=== PATIENT | female | born 1965 | race Caucasian/White ===

== ENCOUNTER 2024-02-14 10:07 | Outpatient (CLI) | payer OTHER, SELFPAY ==
--- OUTSIDE RECORDS SUMMARY | 2024-02-14 10:11 | XMS_ITS | Clinical Summary ---
Author Organization [facility] Address [address] [place] [address] Care Team Providers Care Environmental Engineering Manager Name Role Phone Kenyatta Muniz M.D. Primary Care Pro vider Source Comments Patient records contain information from all sites at [facility]. For routine questions regarding patient records, call [phone] during business hours, M-F 8:00 AM - 5:00 PM Central Time. Record requests for emergency care only can be directed to [phone] at any time.[facility] Allergies Active Allergy Reactions Criticality Noted Date Comments Erythromycin GI intolerance 04/30/2005 PN: LW Reaction: nausea Penicillins Rash Low 06/30/2016 Sulfa (Sulfonamide Antibiotics) Rash Low 06/30/2016 Medications Medication Sig Dispensed Refills Start Date End Date Status olopatadine (PATADAY) 0.2 % ophthalmic solution Administer 1 drop into both eyes daily. 06/30/2016 Active acetaminophen (TYLENOL) 500 mg tablet Take 1,000 mg by mouth. Active estradioL (VAGIFEM) 10 mcg vaginal tablet Insert 1 tablet (10 mcg) into vagina at bedtime for two weeks then at bedtime twice a week. 18 tablet 3 01/13/2022 Active amLODIPine (NORVASC) 5 mg tablet TAKE ONE TABLET BY MOUTH ONE TIME DAILY 90 tablet 3 04/18/2023 Active sertraline (ZOLOFT) 100 mg tablet take one tablet by mouth one time daily 90 tablet 3 08/30/2023 Active clonazePAM (KlonoPIN) 0.5 mg tablet Take 1 tablet (0.5 mg total) by mouth 2 (two) times a day as needed for anxiety. 30 tablet 09/13/2023 Active triamcinolone (KENALOG) 0.1 % cream Apply topically 2 (two) times a day as needed for irritation or rash. Avoid face and groin. 30 g 3 10/19/2023 Active Active Problems Problem Noted Date Diagnosed Date Hypertension Essential Primary 01/12/2022 Pain Neck 11/17/2021 Screening Cancer Colon 01/08/2021 Overview: Added automatically from request for surgery [id number] Primary Osteoarthritis Lumbar Spine 06/30/2016 Panic Disorder Episodic Paroxysmal Anxiety 06/30 Cancer Colon Family History 06/30/2016 Encounters Date Type Department Care Team Description 02/07/2024 12:51 PM CDT - 02/07/2024 11:59 PM CDT Hospital Encounter Department of Radiology in [address] [phone] Kenyatta Muniz M.D. Bleeding Vaginal Discharge Disposition: Home or Self Care 02/02/2024 4:30 PM CDT Office Visit Department of Family Medicine, [facility], in [address] [phone] Julia Montesinos APRN, C.N.P., D.N.P. Lesion Skin Foot (Primary Dx) 02/02/2024 Nurse Triage Department of Family Medicine, [facility], in [address] [phone] Emelina Hammond R.N. 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 Last 3 Months Immunizations Name Administration Dates Next Due H1N1 All Forms 08/11/2009,05/22/2009 HepA Adult 05/26/2023,07/12/2002 HepB Adult 11/29/2003,08/09/2002,07/12/2002 Influenza (IM) Preservative Free 05/09/2023,09/0 04/2010,06/17/2009 Influenza TIV (IM) 04/30/2010,07/11/2002 Influenza, Injectable, Mdck, Quadrivalent 05/02/2023,05/03/2022 Influenza, Injectable, Quadrivalent 06/19/2020,0 05/13/2015 Influenza, Seasonal, Injectable 11/06/19 16,06/28/2014,05/29/2013,2012,06/15/2011,07/11/2002 Influenza, Unspecified 06/05/2020,11/06/2015 PCV20 01/12/2022 RZV (SHINGRIX) 01/08/2021,07/26/2019 SARS-COV-2 (COVID-19) - MODERNA(Discontinued) 12/18/2020,11/20/2020 Td (Adult), adsorbed 07/12/2002 Td Preservative Free (TENIVA C, DECAVAC) 04/27/2018 Tdap 02/15/2007 influenza high dose (65 year s or older) (PF) 05/22/2009 influenza vaccine QV(FLUBLOK ) (18 years or older) (PF) 06/26/2021 influenza vaccine quad (FLUZONE/FLUARIX) (6 months and older)(PF) 07/26/2019,05/25/2018,09/06/2017 Family History Medical History Relation Name Comments Lung cancer Aunt maternal Tobacco Use Aunt maternal Diabetes Brother 1 Pramod Hypertension Brother 1 Pramod Rectal cancer Brother 2 Wilner Hypertension Brother 3 Lance Coronary artery disease Father Hypertension Father Breast cancer Father's Sister Coronary artery disease Grandfather paternal Hypertension Grandfather paternal Gastric cancer Grandmother maternal Colonic polyp Mother Kidney disease Mother stage 5 Hypertension Sister 1 Penny Kidney disease Sister 1 Penny Colon polyps Sister 2 Alysa Colon cancer Uncle maternal Relation Name Status Comments Aunt maternal Brother 1 Pramod Brother 2 Wilner Alive Brother 3 Lance Alive Father Father's Sister Grandfather paternal Grandmother maternal Mother Sister 1 Penny Sister 2 Alysa Alive Uncle maternal Social History Tobacco Use Types Packs/Day Years Used Date Smoking Tobacco: Former Cigars Smokeless Tobacco: Never Tobacco Cessation:Counseling Given: Not Answered Alcohol Use Standard Drinks/Week Comments Yes 14 (1 standard drink = 0.6 oz pu re alcohol) Humiliation, Afraid, Rape, and Kick questionnair e Answer Date Recorded Within the last year, have y ou been afraid of your partner or ex-partner? No 01/05/2021 Within the last year, have y ou been humiliated or emotionally abused in other ways by your partner or ex-partner? No Within the last year, have y ou been kicked, hit, slapped, or otherwise physically hurt by your partner or ex-partner? No 01/05/2021 Within the last year, have y ou been raped or forced to have any kind of sexual activity by your partner or ex-partner? No 01/05/2021 Social Connection and Isolation Panel [NHANES] A nswer Date Recorded In a typical week, how many times do you talk on the phone with family, friends, or neighbors? Twice a week 01/05/2021 How often do you get together with friends or re latives? Once a week 01/05/2021 Attends Holiness Services Not on file 01/05 Active Member of Clubs or Organizations Not on f ile 01/05/2021 Attends Club or Organization Meetings Not on susi e 01/05/2021 Are you , , di vorced, , never , or living with a partner? 01/05/2021 AUDIT-C Answer Date Recorded Q1: How often do you have a drink containing alcohol? 4 or more times a week 01/05/2021 Q2: How many drinks containi ng alcohol do you have on a typical day when you are drinking? 3 or 4 Q3: How often do you have si x or more drinks on one occasion? Monthly 01/05/2021 Overall Financial Resource Strain (CARDIA) Answe r Date Recorded How hard is it for you to pa y for the very basics like food, housing, medical care, and heating? Not hard at all 01/05/2021 PHQ-2 Answer Date Recorded PHQ-2 Score 0 02/02/2024 [facility] [place] [facility] Occupat ional Health - Occupational Stress Questionnaire Answer Date Recorded Do you feel stress - tense, restless, nervous, or anxious, or unable to sleep at night because your mind is troubled all the time - these days? Only a little 01/05/2021 Exercise Vital Sign Answer Date Recorde d On average, how many days pe r week do you engage in moderate to strenuous exercise (like a brisk walk)? 3 days 01/05/2021 On average, how many minutes do you engage in exercise at this level? 60 min 01/05/2021 Hunger Vital Sign Answer Date Recorded Within the past 12 months, y ou worried that your food would run out before you got the money to buy more. Never true 01/06/20 21 Within the past 12 months, t he food you bought just didn't last and you didn't have money to get more. Never true 01/05/2021 PRAPARE - Transportation Answer Date Re corded In the past 12 months, has l ack of transportation kept you from medical appointments or from getting medications? No 12/20 In the past 12 months, has l ack of transportation kept you from meetings, work, or from getting things needed for daily living? No 01/05/2021 Housing Stability Vital Sign Answer Danie e Recorded In the last 12 months, was t here a time when you were not able to pay the mortgage or rent on time? No 01/05/2021 In the last 12 months, how many places have you lived? 1 01/05/2021 In the last 12 months, was t here a time when you did not have a steady place to sleep or slept in a chcf (including now)? No 01/05/2021 Nutrition Answer Date Recorded Nutrition: EVOO Fat Source No 01/05 On average, how many serving s of fruits and vegetables do you eat per day (serving size is equal to 1 cup or approximately the size of a tennis ball)? 2-3 01/05/2021 Dental Answer Date Recorded Dental: Regular Dentist Unknown 01/25/20 Employment Answer Date Recorded Employment status Employed and actively working without restrictions 01/05/2021 Education Answer Date Recorded What is the highest level of school you have completed or the highest degree you have received? Master's degree (e.g., MA, MS, Chris, MEd, OR SCRUB TECH, CYRUS) 07/24/2019 Sex and Gender Information Value Date Recorded Sex Assigned at Female 10/12/2021 9:16 AM BATTALION FIRE CHIEF Gender Identity Female 07/24/2019 5:47 PM BATTALION FIRE CHIEF Sexual Orientation Lesbian or Yates 07/24/2019 5: 47 PM BATTALION FIRE CHIEF Last Filed Vital Signs Vital Sign Reading Time Taken Comments Blood Pressure 137/87 02/02/2024 4:02 PM CDT Pulse 67 02/02/2024 4:02 PM CDT Temperature 35.7 ??C (96.3 ??F) 02/02/2024 4:02 PM CD T Respiratory Rate 16 02/02/2024 4:02 PM CDT Oxygen Saturation 98% 05/26/2023 6:04 PM CDT Inhaled Oxygen Concentration - - Weight 81.4 kg (179 lb 5.5 oz) 02/02/2024 4:02 P M CDT Height 177.6 cm (5' 9.92) 02/02/2024 4:02 PM CD T Body Mass Index 25.79 02/02/2024 4:02 PM CDT Plan of Treatment Upcoming Encounters Date Type Department Care Team (Late st Contact Info) Description 02/17/2024 2:15 PM CDT Comprehensive Visit Department of Obstetrics and Gynecology in [address] [phone] Tracee Thompson M.D. [address] [place] [phone] Discharge Disposition: Home or Self Care 05/29/2024 8:30 AM CDT Appointment Department of Laboratory Medicine in [address] [phone] Kenyatta Muniz M.D. [address] [place] [phone] 05/29/2024 10:45 AM CDT Comprehensive Visit Department of Family Medicine, [facility], in [address] [phone] Kenyatta Muniz M.D. [address] [place] [phone] Discharge Disposition: Home or Self Care Health Maintenance Due Date Last Done Comments CT Colonography 1965 Cologuard 1965 Mammogram 05/19/2024 05/19/2023, 12/21, 11/17/2020, Additional history exists Visit: Chronic Disease, age 18+ 05/26/2024 05/26/2023 Office Visit for Blood Pressure Check / Re-check 02/01/2025 02/02/2024 Colonoscopy 02/27/2026 02/27/2021, 07/22/2016 Colorectal Cancer Surveillance 02/27/2026 Fasting Glucose for Diabetes Screening 05/19/2026 05/19/2023, 01/11/2022, 02/07/2017 Cervical Cancer Screening 01/12/20272021, 01/12/2022, 11/12/2015 DTaP,Tdap,and Td Vaccines (3 - Td or Tdap) 04/27/2028 04/27/2018, 02/15/2007, 07/12/2002 Lipid (Cholesterol) Screening 05/19/2028 05/19/2023, 01/11/2022, 04/27/2018, Additional history exists HIV Screening Addressed 08/22/1998 (Perf ormed elsewhere) Overridden with the intention of not completing the topic Hepatitis B Vaccines Completed 11/29/2003, 08/09/2002, 07/12/2002 Hepatitis C Screening Completed 04/27/2018 Zoster Vaccines Completed 01/08/2021, 07/26/2019 Pneumococcal vaccine (0-64 years) Aged Out 01/12/2022 No longer eligible b ased on patient's age to complete this topic Influenza Vaccine Completed 05/09/2023, , 05/03/2022, Additional history exists Hepatitis A Vaccines Completed 05/26/2023, 07/12/20 02 COVID-19 Vaccine Completed 07/07/2023, 05/2022, 01/01/2022, Additional history exists Depression Screening (Annual PHQ-2) Completed 02/02/2024, 02/02/2024 Procedures Procedure Name Priority Date/Time Associated Diagnosis Comments US PELVIS TRANSABDOMINAL RAD - Routine (most inpatients and all outpatients) 02/07/2024 1:18 PM CDT Bleeding Vaginal BI BREAST SCREENING BILATERAL WITH TOMOSYNTHESIS RAD - Routine (most inpatients and all outpatients) 05/19/2023 9:09 AM CDT Screening Mammogram Breast Cancer GLUCOSE, FASTING, S/P Routine 05/19/2023 8:54 AM CDT Screening Examination Diabetes Mellitus LIPID PANEL, S Routine 05/19/2023 8:54 AM CDT Screening Lipid HPV WITH GENOTYPING, PCR, THINPREP Routine 01/12/2022 5:46 PM CDT COLONOSCOPY 02/27/2021 12:27 PM CDT HCV AB SCRN W/REFLEX TO HCV PCR, S Routine 04/27/2018 10:28 AM CDT Screening Test Laboratory from Last 3 Months or Most Recently Relevant to Health Maintenance Results * US Pelvis Transabdominal (02/07/2024 1:18 PM CDT) Anatomical Region Laterality Modality Pelvis, Ultrasound RST LOS, Ultrasound ARZ LOS, Ultrasound FLA LOS N/A Ultrasound Impressions 02/07/2024 2:08 PM CDT 1. Endometrial thickening measuring 6 mm. Recommend correlation with tissue sampling. Narrative 02/07/2024 2:08 PM CDT EXAM: US PELVIS TRANSABDOMINAL COMPARISON: None TECHNIQUE: ??Transabdominal. FINDINGS: Uterus: 1.9 cm x 4.3 cm x 5.8 cm. Myometrium: Normal. Endometrium: Thickened. 6 mm Right ovary: Normal. Left ovary: Normal. Intraperitoneal Fluid: None. Procedure Note Quincy Herman M.D. - 02/07/2024 EXAM: US PELVIS TRANSABDOMINAL COMPARISON: None TECHNIQUE: Transabdominal. FINDINGS: Uterus: 1.9 cm x 4.3 cm x 5.8 cm. Myometrium: Normal. Endometrium: Thickened. 6 mm Right ovary: Normal. Left ovary: Normal. Intraperitoneal Fluid: None. IMPRESSION: 1. Endometrial thickening measuring 6 mm. Recommend correlation withtissue sampling. Kenyatta KULKARNIG US CT OCEDURES * BI Breast Screening Bilateral with Tomosynthesis (05/19/2023 9:09 AM CDT) Anatomical Region Laterality Modality Breast, Breast Imaging RST L OS, Breast Imaging ARZ LOS, Breast Imaging FLA LOS Bilateral Mammography 05/19/2023 11:4 6 AM CDT Impressions 05/19/2023 11:47 AM CDT Negative. RECOMMENDATION: ??Annual Screening Mammogram ASSESSMENT: ??BI-RADS: 1: Negative. Narrative 05/19/2023 11:47 AM CDT EXAM: ??BI BREAST SCREENING BILATERAL WITH TOMOSYNTHESIS Current study was evaluated with a Computer Aided Detection (CAD) system. INDICATION: ??Screening mammogram. COMPARISON: ??Prior exam(s) were available and reviewed for comparison. DENSITY: ??b. There are scattered areas of fibroglandular density. FINDINGS: ??No mammographic findings of malignancy. Procedure Note Gigi Britt M.D. - 05/19/2023 EXAM: BI BREAST SCREENING BILATERAL WITH TOMOSYNTHESIS Current study was evaluated with a Computer Aided Detection (CAD) system. INDICATION: Screening mammogram. COMPARISON: Prior exam(s) were available and reviewed for comparison. DENSITY: b. There are scattered areas of fibroglandular density. FINDINGS: No mammographic findings of malignancy. IMPRESSION: Negative. RECOMMENDATION: Annual Screening Mammogram ASSESSMENT: BI-RADS: 1: Negative. Kenyatta GARCIA BI CT OCEDURES * (ABNORMAL) Lipid Panel (05/19/2023 8:54 AM CDT) Pathologist [facility] Triglycerides 77 mg/dL 05/19/2023 9:20 AM CDT CNFL Comment: ----REFERENCE VALUE---- Normal: <150 mg/dL Borderline High: 150-199 mg/dL High: 200-499 mg/dL Very High: > or =500 mg/dL Cholesterol, Total 207(H) mg/dL 2022 9:20 AM CDT CNFL Comment: ----REFERENCE VALUE---- Desirable: < 200 mg/dL Borderline High: 200 - 239 mg/dL High: > or = 240 mg/dL Cholesterol, LDL, Calculated 100 mg/dL 05/19/2023 9:20 AM CDT CNFL Comment: ----REFERENCE VALUE---- Desirable: <100 mg/dL Above Desirable: 100-129 mg/dL Borderline High: 130-159 mg/dL High: 160-189 mg/dL Very High: >=190 mg/dL ----ADDITIONAL INFORMATION---- LDL cholesterol calculated using the Lynne/NIH equation. Cholesterol, HDL 93 >=50 mg/dL 05/19/20 9:20 AM CDT CNFL Cholesterol, Non-HDL, Calculated 114 mg/dL 05/19/2023 9:20 AM CDT CNFL Comment: ----REFERENCE VALUE---- Desirable: <130 mg/dL Above Desirable: 130-159 mg/dL Borderline High: 160-189 mg/dL High: 190-219 mg/dL Very High: > or =220 mg/dL Fasting (8 HR or more) Yes 05/19/2023 8:54 AM CDT CNFL Blood (Blood, Venous) 05/19/2023 8:54 AM CDT 05/19/2023 8:54 AM CDT Kenyatta Benavides M.D. LAB BLOOD ADD-ON Performing Organization Address City/State/[facility] Co de Phone Number [facility] [address] [place] [address], [facility] CNFL [facility] in [address] [address] * Glucose, Fasting (05/19/2023 8:54 AM CDT) Glucose, P 98 70 - 100 mg/dL 05/19/2023 11:00 AM CDT CNFL Last Intake 11 hr 05/19/2023 8:55 AM CDT CNFL Blood (Blood, Venous) 05/19/2023 8:54 AM CDT 05/19/2023 8:54 AM CDT Kenyatta Benavides M.D. LAB BLOOD NON ADD-ON Performing Organization Address City/[facility]/ZIP Co de Phone Number [facility] [address] [place] [id number], [facility] CNFL [facility] in [address] [address] * HPV with Genotyping, PCR, ThinPrep (01/12/2022 5:46 PM CDT) HPV with Genotyping, ThinPrep, PCR Negative Negative 01/15/2022 3:29 PM CDT ECLR Comment: Negative for high risk HPV by nucleic acid amplification. ??The following high risk HPV types were not detected: 16, 18, 31, 33, 35, 39, 45, 51, 52, 56, 58, 59, 66, and 68 Varies 01/12/2022 5:46 PM CDT 01/14/2022 2:54 PM CDT Kenyatta Benavides M.D. LAB MICRO BIOLOGY - GENERAL ORDERABLES Performing Organization Address City/[facility]/ZIP Co de Phone Number [facility] [address] [place] [address], [facility] ECLR [facility] [place] [address] * COLONOSCOPY (02/27/2021 12:27 PM CDT) Narrative Procedure Note Pal Lee M.D. - 02/27/2021 12:27 PM CDT [facility] GI Patient Name: Nataliia Grant Procedure Date: 02/27/2021 12:27 PM Date of : 1965 Age: 55 Gender: Female Procedure: Colonoscopy Providers: Kenyatta Drake (Ordering Provider) Referring Provider: Kenyatta Wilburn Pre-op Diagnoses: High risk colon cancer surveillance: Personal history of colonic polyps, Family history ofcolon cancer in a first-degree relative before age 60years Post-op Diagnoses: - Two 2 to 3 mm polyps in the transverse colon, removed with a cold snare. Resected and retrieved. - Diverticulosis in the sigmoid colon. Recommendation: - Discharge patient to home. - Await pathology results. - Repeat colonoscopy in 5 years for surveillance. - Return to primary care physician PRN. Findings: The perianal and digital rectal examinations were normal. Two sessile polyps were found in the transverse colon. The polypswere 2 to 3 mm in size. These polyps were removed with a cold snare.Resection and retrieval were complete. Estimated blood loss was minimal. A few small-mouthed diverticula were found in the sigmoid colon. No additional abnormalities were found on retroflexion. Medicines: Propofol per Anesthesia Estimated Blood Loss: Estimated blood loss was minimal. Complications: No immediate complications. Estimated blood loss: Minimal. Procedure Details: The patient was seen, evaluated, and history reviewed. Airway and heart and lung exams were performed and were satisfactory for plannedsedation care. The risks, benefits and alternatives for the procedure and sedation were discussed andinformed consent was obtained. A procedural pause was conducted in the presence of assisting personnelto verify the correct patient identity and procedureto be performed. Throughout the procedure, the patient's blood pressure, pulse, and oxygen saturations were monitored continuously. The 98 [id number] was introduced underdirect vision through the anus and advanced to thececum, identified by appendiceal orifice and ileocecal valve. The colonoscopy was performed without difficulty. The patient tolerated the procedure well. The quality of the bowel preparation was evaluated using the BBPS ([place] BowelPreparation Scale) with scores of: Right Colon = 3,Transverse Colon = 3 and Left Colon = 3 (entire mucosa seen well with no residual staining, small fragmentsof stool or opaque liquid). The total BBPS scoreequals 9. Sedation: Anesthesia was administered by an anesthesia professional. Thefollowing parameters were monitored: oxygen saturation, heart rate, blood pressure, respiratory rate, EKG, adequacy of pulmonary ventilation,and response to care. Pal Lee, 02/27/2021 12:59:33 PM This report has been signed electronically. Number of Addenda: 0 Note Initiated On: 02/27/2021 12:27 PM Kenyatta Benavides M.D. GI PROCED URE ORDERABLES * HCV Ab Scrn w/Reflex to HCV PCR, Serum (04/27/2018 10:28 AM CDT) HCV Ab Screen, S Nonreactive Nonreactive 04/28/2018 8:08 AM CDT [facility] Blood (Blood, Venous) 04/27/2018 10:28 AM CDT 04/27/2018 3:39 PM CDT Narrative [facility] - 04/28/2018 8:08 AM CDT Specimen Information: Specimen ID: [id number] Specimen Type: Blood Specimen Collection Start Date: 04/27/2018 10:28 AM Specimen Received Date: 04/27/2018 ??3:39 PM Specimen ID: [id number] Specimen Type: Blood Specimen Collection Start Date: 04/27/2018 10:28 AM Specimen Received Date: 04/27/2018 ??3:39 PM Kenyatta Benavides M.D. LAB MICRO BIOLOGY - BLOOD ORDERABLES [facility] [address] [place] [address] from Last 3 Months or Most Recently Relevant to Health Maintenance Insurance Payer Benefit Plan / Group Subscriber ID Effective Dates Phone Address Type [employer] [id number] 08/01-P resent [address] [place] [address] [facility] OPEN ACCESS [id number] 2022-Pre sent [address] [place] [address] PPO Advance Directives For more information, please contact: [phone] * Full Code (Latest Code Status on File) Date Activated Date Inactivated Comments 02/27/2021 1:05 PM 02/27/2021 3:48 PM Question Answer Comments Full Code: Discussed * Full Code Date Activated Date Inactivated Comments 02/27/2021 11:34 AM 02/27/2021 1:05 PM Question Answer Comments Full Code: Discussed Care Teams Environmental Engineering Manager Relationship Specialty Start Date End Date Kenyatta Muniz M.D. [id number] [phone] PCP - General 02/03/17
--- OUTSIDE RECORDS SUMMARY | 2024-02-14 10:12 | XMS_ITS ---
Author Organization [facility] Address [address] [place] [address] Care Team Providers Care Diesel Instructor Name Role Phone Unavailable Unavailable Unavailable Surgery Details Not on file Complications Check Surgery Details section. Procedure Estimated Blood Loss Check Surgery Details section. Procedure Findings Check Surgery Details section. Procedure Specimens Taken Check Surgery Details section.
--- OUTSIDE RECORDS SUMMARY | 2024-02-14 10:12 | XMS_ITS | Continuity of Care Document ---
Author Organization [place] - [facility], [place] Office Address [address] [place] [phone] Assessment No assessment recorded. Plan of Treatment Reminders Order Date Submit Date Provider Last Modified By Organization Details Last Modified Time Details Appointments None recorded. Lab None recorded. Referral None recorded. Procedures None recorded. Surgeries None recorded. Imaging MRI, foot, w/wo contrast - Please fax results back to Dr. Rosales at 2023 024 [facility] Radiology Department, [address] [place], [address], 04:23:36 XR, foot, 3 or more view 2023 024 [facility] Office, [address] [place] [address], [phone], 15:17:42 Medication Orders None recorded. Patient TargetsNo targets recorded. Patient InstructionsNo instructions recorded. Reason for Referral None Reported. Results Created Date Observation Date Name Description Value Unit Range Abnormal Flag LastModifiedBy Organization Detail LastModifiedTime 02/03/20 24 XR, foot, 3 or more view No observ ation record ed. [email or web address] [place] [address], [phone], 02/03/2024 12:17:31 Result Notes None recorded. Procedures Surgical History None recorded. Imaging Results Imaging Date Name Status LastModified by Organiz ation Details LastModified Time 02/03/2024 XR, foot, 3 or more view active [address] [place] [address], [phone], 02/03/2024 12:17:31 Procedure Notes None recorded. Medical Equipment None Reported. Allergies Allergen ID Allergen Name Allergen Category Reaction Reaction Severity Criticality Documentation Date Start Date Code Code System Note Provider Name and Address Organization Details Recorded Time Medicinal product containin g penicilli n and acting as antibacte rial agent (product) medicatio n Not available Not available Not available 02/03/2024 [id number] [facility] Julia Lenz [facility] 11:19:33 Medications Name Sig Start Date Stop Date Status Note LastModified by Organization Details LastModified Time clonazepam 0.5 mg tablet TAKE ONE TABLET BY MOUTH TWICE DAILY NEEDED FOR ANXIETY* active Not Available Not Available No t Available sertraline 100 mg tablet TAKE ONE TABLET BY MOUTH ONE TIME DAILY* active Not Available Not Available Not Available amlodipine 5 mg tablet TAKE ONE TABLET BY MOUTH ONE TIME DAILY* active Not Available Not Available Not Available triamcinolon e acetonide 0.1 % topical cream APPLY TOPICALLY TWICE A DAY NEEDED FOR IRRITATION OR RASH. AVOID FACE AND GROIN* active Not Available Not Available N ot Available Vitals Date Recorded Body height Body mass index (BMI) Body weight Provider Name and Address Organization Details Last Updated DateTime 02/03/2024 180.34 cm 23.4 kg/m2 30744.52 booker Lenz [facility] 02/03/2024 11:19:18 Social History None recorded. Functional Status None recorded. Mental Status None recorded. Family History Nothing Reported. Medical History No medical history recorded. Gynecological HistoryNo gynecological history recorded. Obstetrics History GPAL:G 0 P 0 0 0 0 Past Encounters Encounter ID Performer Location Encounter Start Date Encounter Closed Date Diagnosis/Indication Diagnosis SNOMED-CT Code [id number] AZRA ROSALES D[facility] [place] [facility] [address] [place] [phone] 02/03/2024 11:18:48 02/03/2024 15:17:42 Mass of soft tissue of right lower limb [id number] 105 Pain in right foot [id number] Health Concerns Section Related Observation LastModified by Organization Detai ls LastModified Time None Recorded Concern Status LastModified by Organization Details LastModified Time None Recorded Payers Encounter Date Sequence Insurance Name Policy Number Policy Jenkins Covered Member ID Jenkins Member ID Guarantor Name 02/03/2024 1 [facility] Nataliia Garcia Rudy [id number] Nataliia Grant Notes Date Note Type Note Provider Name and Address Organization Details Recorded Time 02/03/2024 text/html HPI Notes: The patient presents with a painful bump on the bottom of the right foot, specifically in the arch area, which has been present for about a week. The patient reports a history of sore arches but notes that this bump is different, causing significant pain and discomfort. The pain is exacerbated by pressure and activity, such as walking or running on uneven surfaces, and is alleviated somewhat by elevating the foot. The patient describes the pain as aching, itchy, and burning, with occasional radiation towards the 1st and 2nd toes and back to the arch/heel region. The patient has not had any prior imaging for this issue and has been using supportive footwear to manage the symptoms. There are no overlying skin changes, night sweats, or unintentional weight loss. The patient has a family history of similar lumps, with the mother and sister having had neurofibromas? AZRA ROSALES, [place] [address] [place], [address], [place] - [facility] 02/03/2024 12:18:16 OBGyn Episode No OBEpisode recorded.
--- OUTSIDE RECORDS SUMMARY | 2024-02-14 10:12 | XMS_ITS | Encounter Summary ---
Author Organization [facility] Address [address] [place] [phone] Care Team Providers Care Head Esthetician Name Role Phone Kenyatta Muniz M.D. Primary Care Pro vider Reason for Visit * Reason Onset Date Comments Foot Pain 02/02/2024 Encounter Details Date Type Department Care Team (Late st Contact Info) Description 02/02/2024 Nurse Triage Department of Family Medicine, [facility], in [address] [phone] Emelina Hammond R.N. [address] [place] [phone] Foot Pain Social History Tobacco Use Types Packs/Day Years Used Date Smoking Tobacco: Former Cigars Smokeless Tobacco: Never Alcohol Use Standard Drinks/Week Comments Yes 14 [...] re latives? Once a week 01/05/2021 Attends Voodoo Services Not on file 01/05 Active Member [...] Answer Date Recorded PHQ-2 Score 0 02/02/2024 [facility] - Occupational Stress [...] place to sleep or slept in a senior living (including now)? No 01/05/2021 Nutrition Answer Date [...] Master's degree (e.g., MA, MS, Chris, MEd, CLINIC CMA, CYRUS) 07/24/2019 Sex and Gender Information Value Date Recorded Sex Assigned at Female 10/12/2021 9:16 AM [employer] ASSISTANT MANAGER Gender Identity Female 07/24/2019 5:47 PM [employer] ASSISTANT MANAGER Sexual Orientation Lesbian or Yates 07/24/2019 5: 47 PM [employer] ASSISTANT MANAGER documented as of this encounter Miscellaneous Notes * Telephone Encounter - Emelina Hammond R.N. - 02/02/2024 2:59 PM CDT Chief Complaint / Reason for Call Patient is a 58 y.o. female calling regarding Foot Pain. Assessment Concern: Right food pain. Has a black bump on the bottom of the arch of the foot. Bump is about 1/2 in size. No injury. She says she has had this before, but this is the worst episode she has had. Pain is 5-6/10. No swelling. No injury. Present for: one week Home cares tried: advil - helps some and elevating helps Calling to request: an appointment The recommended disposition is See a health care provider within 3 days. Patient was warm [facility] Medical Director at the clinic for further assistance. and Encouraged patient to call back with any new, worsening, or persistent symptoms. Reason for Disposition [1] MODERATE pain (e.g., interferes with normal activities, limping) AND [2] present > 3 days Protocols used: Foot [id number] Care Advice Patient/Caregiver understands and will follow care advice?: Yes, able to teach back Foot [id number] Nurse Emelina Stewart Feb 02, 2024 03:05 PM Care Advice SEE PCP WITHIN 3 DAYS: * You need to be seen within 2 or 3 days. PAIN MEDICINES: * For pain relief, you can take either acetaminophen, ibuprofen, or naproxen. * They are wqdf-dsr-nriebkp (OTC) pain drugs. You can buy them at the drugstore. * ACETAMINOPHEN - REGULAR STRENGTH TYLENOL: Take 650 mg (two 325 mg pills) by mouth every 4 to 6 hours as needed. Each Regular Strength Tylenol pill has 325 mg of acetaminophen. The most you should take is 10 pills a day (3,250 mg total). Note: In [place], the maximum is 12 pills a day (3,900 mg total). * ACETAMINOPHEN - EXTRA STRENGTH TYLENOL: Take 1,000 mg (two 500 mg pills) every 6 to 8 hours as needed. Each Extra Strength Tylenol pill has 500 mg of acetaminophen. The most you should take is 6 pills a day (3,000 mg total). Note: In [place], the maximum is 8 pills a day (4,000 mg total). * IBUPROFEN (E.G., MOTRIN, ADVIL): Take 400 mg (two 200 mg pills) by mouth every 6 hours. The most you should take is 6 pills a day (1,200 mg total). * NAPROXEN (E.G., ALEVE): Take 220 mg (one 220 mg pill) by mouth every 8 to 12 hours as needed. Youmay take 440 mg (two 220 mg pills) for your first dose. The most you should take is 3 pills a day (660 mg total). Note: In [place], the maximum is 2 pills a day (one every 12 hours; 440 mg total). * Use the lowest amount of medicine that makes your pain better. PAIN MEDICINES - EXTRA NOTES AND WARNINGS: * Follow these dosing instructions unless your doctor (or PHYSICAL CHEMIST/PA) has told you to take a different dose. * Acetaminophen is thought to be safer than ibuprofen or naproxen in people over 65 years old. Acetaminophen is in many OTC and prescription medicines. It might be in more than one medicine that you are taking. You need to be careful and not take an overdose. An acetaminophen overdose can hurt the liver. * [employer], the company that makes Tylenol, has different maximum dosage instructions for Tylenol in [place] than in the [place]. [employer], the company that makes Aleve, has different dosage maximum instructions for Aleve in [place] and the [place]. * CAUTION: Do not take acetaminophen if you have liver disease. * CAUTION: Do not take ibuprofen or naproxen if you have stomach problems, kidney disease, are , or have been told by your doctor to avoid this type of anti-inflammatory drug. Do not take ibuprofen or naproxen for more than 7 days without consulting your doctor. If you take blood thinners, ibuprofen and naproxen can increase the risk of bleeding. * Before taking any medicine, read all the instructions on the package. CALL BACK IF: * Fever occurs * You become worse CARE ADVICE given per Foot Pain (Adult) guideline. documented in this encounter Plan of Treatment Upcoming Encounters Date Type Department Care Team (Late st Contact Info) Description 02/17/2024 2:15 PM CDT Comprehensive Visit Department of Obstetrics and Gynecology in [address] [phone] Tracee Thompson M.D. [address] [place] [phone] Discharge Disposition: Home or Self Care 05/29/2024 8:30 AM CDT Appointment Department of Laboratory Medicine in [address] [phone] Kenyatta Muniz M.D. [address] [place] [address], [place] [phone] 05/29/2024 10:45 AM CDT Comprehensive Visit Department of Family Medicine, [facility], in [address] [place] [address] Kenyatta Muniz M.D. [address] [place] [phone] Discharge Disposition: Home or Self Care documented as of this encounter Visit Diagnoses Not on filedocumented in this encounter Additional Health Concerns Assessment Noted Time PHQ-9 Depression Total Score: 8 02/11/20 17 10:03 AM CDT documented as of this encounter Care Teams Head Esthetician Relationship Specialty Start Date End Date Kenyatta Muniz M.D. [address] [place] [phone] PCP - General 02/03/17 documented as of this encounter
--- OUTSIDE RECORDS SUMMARY | 2024-02-14 10:12 | XMS_ITS | Encounter Summary ---
Author Organization [facility] Address [address] [place] [address] Care Team Providers Care Senior Specialist Name Role Phone Kenyatta Muniz M.D. Primary Care Pro vider Reason for Visit * Reason Comments Pain In Limb Right foot pain for several days with bump on bottom * Appointment Request (Routine) - Closed Specialty Diagnoses / Procedures Referred By Daniel piña Referred To Contact Family Medicine Referral ID Status Reason Start Date Expiration Date Visits Re quested Visits Authorized [id number] Closed 02/02/2024 02/01/2025 1 1 Encounter Details Date Type Department Care Team (Late st Contact Info) Description 02/02/2024 4:30 PM CDT Office Visit Department of Family Medicine, [facility], in [address] [phone] RoshanJulia Britt APRN, C.N.P., D.N.P. [address] [phone] Lesion Skin Foot (Primary Dx) Social History Tobacco Use Types Packs/Day Years [...] re latives? Once a week 01/05/2021 Attends Shinto Services Not on file 01/05 Active Member [...] Answer Date Recorded PHQ-2 Score 0 02/02/2024 [facility] - Occupational Stress Questionnaire Answer [...] place to sleep or slept in a care home (including now)? No 01/05/2021 Nutrition Answer Date Recorded Nutrition: EVOO Fat Source No 01/05 On average, how many serving s of fruits and vegetables do you eat per day (serving size is equal to 1 cup or approximately the size of a tennis ball)? 2-3 01/05/2021 Dental Answer Date Recorded Dental: Regular Dentist Unknown 01/25/20 24 Employment Answer Date Recorded Employment status Employed and actively working without restrictions 01/05/2021 Education Answer Date Recorded What is the highest level of school you have completed or the highest degree you have received? Master's degree (e.g., MA, MS, Chris, MEd, BRANCH EXAMINER, CYRUS) 07/24/2019 Sex and Gender Information Value Date Recorded Sex Assigned at Female 10/12/2021 9:16 AM CRISIS CLINICIAN Gender Identity Female 07/24/2019 5:47 PM CRISIS CLINICIAN Sexual Orientation Lesbian or Yates 07/24/2019 5: 47 PM CRISIS CLINICIAN documented as of this encounter Last Filed Vital Signs Vital Sign Reading Time Taken Comments Blood Pressure 137/87 02/02/2024 4:02 PM CDT Pulse 67 02/02/2024 4:02 PM CDT Temperature 35.7 ??C (96.3 ??F) 02/02/2024 4:02 PM CD T Respiratory Rate 16 02/02/2024 4:02 PM CDT Oxygen Saturation - - Inhaled Oxygen Concentration - - Weight 81.4 kg (179 lb 5.5 oz) 02/02/2024 4:02 P M CDT Height 177.6 cm (5' 9.92) 02/02/2024 4:02 PM CD T Body Mass Index 25.79 02/02/2024 4:02 PM CDT documented in this encounter Progress Notes * Roshan-Julia Britt APRN, C.N.P., D.N.P. - 02/02/2024 4:30 PM CDT Images from the original note were not included. SUBJECTIVE CHIEF COMPLAINT / REASON FOR VISIT Nataliia Grant is a 58 y.o. female who presents for evaluation of Pain In Limb (Right foot pain for several days with bump on bottom). HISTORY OF PRESENT ILLNESS Nataliia Grant is a very pleasant 58-year-old female PMH Hypertension, osteoarthritis lumbar spine, presents with painful bump on the arch of her right foot, which has been present for a week. Patient reports history of previous bump that resolved on its own and this current one appeared week ago, very painful to touch pain rated 2/10 at rest and with the palpation 6/10. 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 OBJECTIVE Vitals: 02/02/24 1602 BP: 137/87 BP Location: Right arm Patient Position: Sitting Cuff Size: Regular Pulse: 67 Resp: 16 Temp: (!) 35.7 ??C TempSrc: Temporal Weight: 81.4 kg Height: 177.6 cm Body mass index is 25.79 kg/m??. PHYSICAL EXAMINATION Constitutional Appearance: Normal appearance. Musculoskeletal Feet: Feet Right foot: Skin integrity: No ulcer, skin breakdown or warmth. Comments: -painful dime-sized bump on the arch of right foot, present for a week.Neurological General: No focal deficit present. Mental Status: She is alert and oriented to person, place, and time. Psychiatric Mood and Affect: Mood normal. Behavior: Behavior normal. ASSESSMENT / PLAN #1 Lesions skin foot Clinical decision-making: Patient presents with a painful dime-sized bump on the arch of right foot, present for a week. The bump is exquisitely painful to touch patient rates 6/10. Physical examination revealed no signs of foreign body or discoloration, no drainage or erythema. The patient is referred to Podiatry for further evaluation and management-[facility] [place]facility to patient with a call. All questions answered and patient voiced understanding and agreed with the plan. Julia Montesinos APRN, Zaria.N.P., D.N.P. documented in this encounter Plan of Treatment Upcoming Encounters Date Type Department Care Team (Late st Contact Info) Description 02/17/2024 2:15 PM CDT Comprehensive Visit Department of Obstetrics and Gynecology in [address] [phone] Tracee Thompson M.D. [address] [place] [phone] Discharge Disposition: Home or Self Care 05/29/2024 8:30 AM CDT Appointment Department of Laboratory Medicine in [address] [phone] Kenyatta Muniz M.D. [address] [place] [phone] 05/29/2024 10:45 AM CDT Comprehensive Visit Department of Family Medicine, [facility], in [address] [phone] Kenyatta Muniz M.D. [facility] [address] [phone] Discharge Disposition: Home or Self Care documented as of this encounter Visit Diagnoses Diagnosis Lesion Skin Foot- Primary documented in this encounter Additional Health Concerns Assessment Noted Time PHQ-9 Depression Total Score: 8 02/11/20 17 10:03 AM CDT documented as of this encounter Care Teams Senior Specialist Relationship Specialty Start Date End Date Kenyatta Muniz M.D. [address] [phone] PCP - General 02/03/17 documented as of this encounter
--- OUTSIDE RECORDS SUMMARY | 2024-02-14 10:12 | XMS_ITS | Encounter Summary ---
Author Organization [facility] Address [address] [place] [address] Care Team Providers Care Hot Dip Plater Name Role Phone Kenyatta Muniz M.D. Primary Care Pro vider Encounter Details Date Type Department Care Team (Late st Contact Info) Description 03/07/2017 Historical Ophthalmology [facility] Guerrero Ricketts Jr., M.D. [address] [place] [phone] Social History Tobacco Use Types Packs/Day Years Used Date Smoking Tobacco: Never Sex and Gender Information Value Date Recorded Sex Assigned at Female 10/12/2021 9:16 AM SENIOR STORAGE ENGINEER Gender Identity Female 07/24/2019 5:47 PM SENIOR STORAGE ENGINEER Sexual Orientation Lesbian or Yates 07/24/2019 5: 47 PM SENIOR STORAGE ENGINEER documented as of this encounter Progress Notes * Guerrero Ricketts M.D. - 03/07/2017 1:31 PM CDT Eye General CHIEF COMPLAINT Complete Exam HISTORY OF PRESENT ILLNESS New pt here to [facility]. Since this past spring, pt has noticed a fuzzy floater that appears in her vision from time to time, feels it is the right eye. Appears in the central vision. Has sparklers in vsion at times, states from her silent migraines. Pt notes that her past eye Dr watched her nerves for glaucoma IMPRESSION / REPORT / PLAN #1 C/D aysmmetry OCT nerve today: Good RNFL ou; good RNFL pattern. Enlarged C/D in both eyes, but symmeteric. Will continue watch. #[address] precautions #2 Refractive error New glasses if desired. DIAGNOSIS #1 C/D aysmmetry #2 Vitreous floaters #2 Refractive error CDM Reports - EYEGEN Id: [id number] Status: Fnl documented in this encounter Plan of Treatment Upcoming Encounters Date Type Department Care Team (Late st Contact Info) Description 02/17/2024 2:15 PM CDT Comprehensive Visit Department of Obstetrics and Gynecology in [address] [phone] Tracee Thompson M.D. [address] [place] [phone] Discharge Disposition: Home or Self Care 05/29/2024 8:30 AM CDT Appointment Department of Laboratory Medicine in [address] [phone] Kenyatta Muniz M.D. [address] [place] [phone] 05/29/2024 10:45 AM CDT Comprehensive Visit Department of Family Medicine, [facility], in [address] [phone] Kenyatta Muniz M.D. [address] [place] [phone] Discharge Disposition: Home or Self Care documented as of this encounter Visit Diagnoses Not on filedocumented in this encounter Additional Health Concerns Infection Onset Date Last Indicated Resolved Time COVID19 Pending 02/02/2021 02/02/2021 02/02/2021 8 :21 PM CDT COVID19 Pending 02/24/2021 02/24/2021 02/24/2021 7 :47 PM CDT Assessment Noted Time PHQ-9 Depression Total Score: 8 02/11/20 17 10:03 AM CDT documented as of this encounter Care Teams Hot Dip Plater Relationship Specialty Start Date End Date Kenyatta Muniz M.D. [address] [phone] PCP - General 02/03/17 documented as of this encounter
--- OUTSIDE RECORDS SUMMARY | 2024-02-14 10:12 | XMS_ITS | Referral Summary ---
Author Organization [facility] Address [address] [place] [address] Care Team Providers Care Press Machine Feeder Name Role Phone Kenyatta Muniz M.D. Primary Care Pro vider Source Comments Patient records contain information from all sites at [facility]. For routine questions regarding patient records, call [phone] during business hours, M-F 8:00 AM - 5:00 PM Central Time. Record requests for emergency care only can be directed to [phone] at any time.[facility] Encounters Date Type Department Care Team Description 02/07/2024 12:51 PM CDT - 02/07/2024 11:59 PM CDT Hospital Encounter Department of Radiology in [address] [phone] Kenyatta Muniz M.D. Bleeding Vaginal Discharge Disposition: Home or Self Care 02/02/2024 4:30 PM CDT Office Visit Department of Family Medicine, [facility], in [address] [phone] Roshan-Julia Britt APRN, C.N.P., D.N.P. Lesion Skin Foot (Primary Dx) 02/02/2024 Nurse Triage Department of Family Medicine, [facility], in [address] [phone] Emelina Hammond R.N. Foot Pain 01/25/2024 Patient Self-Triage [facility] Symptom Warp Doffer, Provider from Last 3 Months Allergies Active Allergy Reactions Criticality Noted Date [...] Overview: Added automatically from request for surgery [id number] Primary Osteoarthritis Lumbar Spine 06/30/2016 Panic Disorder Episodic Paroxysmal Anxiety 06/30 Cancer Colon Family History 06/30/2016 Immunizations Name Administration Dates Next Due H1N1 [...] quad (FLUZONE/FLUARIX) (6 months and older)(PF) 07/26/2019,05/25/2018,09/06/2017 Social History Tobacco Use Types Packs/Day Years [...] re latives? Once a week 01/05/2021 Attends [employer] Not on file 01/05 Active Member [...] Answer Date Recorded PHQ-2 Score 0 02/02/2024 [facility] - Occupational Stress [...] place to sleep or slept in a correction (including now)? No 01/05/2021 Nutrition Answer Date [...] Master's degree (e.g., MA, MS, Chris, MEd, LIBRARY SERVICES DEAN, CYRUS) 07/24/2019 Sex and Gender Information Value Date Recorded Sex Assigned at Female 10/12/2021 9:16 AM HAT MENDER Gender Identity Female 07/24/2019 5:47 PM HAT MENDER Sexual Orientation Lesbian or Aytes 07/24/2019 5: 47 PM HAT MENDER Last Filed Vital Signs Vital Sign Reading [...] Visit Department of Obstetrics and Gynecology in [address] [phone] Tracee Thompson M.D. [address] [place] [phone] Discharge Disposition: Home or Self Care 05/29/2024 8:30 AM CDT Appointment Department of Laboratory Medicine in [address] [phone] Kenyatta Muniz M.D. [address] [place] [phone] 05/29/2024 10:45 AM CDT Comprehensive Visit Department of Family Medicine, [facility], in [address] [phone] Kenyatta Muniz M.D. [address] [place] [phone] Discharge Disposition: Home or Self Care Procedures Procedure Name Priority Date/Time Associated Diagnosis [...] 6 mm. Recommend correlation withtissue sampling. Kenyatta Benavides M.D. IMG US WA OCEDURES * BI Breast Screening Bilateral with [...] ASSESSMENT: BI-RADS: 1: Negative. Kenyatta GARCIA BI WA OCEDURES * (ABNORMAL) Lipid Panel (05/19/2023 8:54 AM CDT) Triglycerides 77 mg/dL 05/19/2023 9:20 AM CDT [...] M.D. LAB BLOOD ADD-ON Performing Organization Address City/[facility]/ZIP Co de Phone Number [facility] [address] [place] [phone], [facility] CNFL [facility] in [address] [address] * Glucose, Fasting (05/19/2023 8:54 AM CDT) Glucose, P 98 70 - 100 mg/dL 05/19/2023 11:00 AM CDT CNFL Last Intake 11 hr 05/19/2023 8:55 AM CDT CNFL Blood (Blood, Venous) 05/19/2023 8:54 AM CDT 05/19/2023 8:54 AM CDT Kenyatta Benavides M.D. LAB BLOOD NON ADD-ON [facility] [address] [place] [phone], [place] CNFL [facility] in [address] [address] * HPV with Genotyping, PCR, ThinPrep (01/12/2022 [...] BIOLOGY - GENERAL ORDERABLES Performing Organization Address City/State/[facility] Co de Phone Number [facility] [address] [place] [address], [facility] ECLR [facility] [place] [address] * COLONOSCOPY (02/27/2021 12:27 PM CDT) Narrative Procedure Note Pal Lee M.D. - 02/27/2021 12:27 PM CDT [facility] Patient Name: Nataliia Grant Procedure Date: 02/27/2021 [...] saturations were monitored continuously. The 98 [id number] was introduced underdirect vision through the anus and advanced to thececum, identified by appendiceal orifice and ileocecal valve. The colonoscopy was performed without difficulty. The patient tolerated the procedure well. The quality of the bowel preparation was evaluated using the BBPS ([place] BowelPreparation Scale) with scores of: Right Colon [...] S Nonreactive Nonreactive 04/28/2018 8:08 AM CDT [facility] Blood (Blood, Venous) 04/27/2018 10:28 AM CDT 04/27/2018 3:39 PM CDT Narrative [facility] - 04/28/2018 8:08 AM CDT Specimen Information: Specimen ID: [id number] Specimen Type: Blood Specimen Collection Start Date: 04/27/2018 10:28 AM Specimen Received Date: 04/27/2018 ??3:39 PM Specimen ID: [id number] Specimen Type: Blood Specimen Collection Start Date: 04/27/2018 10:28 AM Specimen Received Date: 04/27/2018 ??3:39 PM Kenyatta Benavides M.D. LAB MICRO BIOLOGY - BLOOD ORDERABLES [facility] [address] [place] [address] from Last 3 Months or Most Recently Relevant to Health Maintenance Insurance Payer Benefit Plan / Group Subscriber ID Effective Dates Phone Address Type [employer] [id number] 08/01-P resent [address] [place] [address] [facility] OPEN ACCESS [id number] 2022-Pre sent [address] [place] [address] PPO Advance Directives For more information, please contact: [phone] * Full Code (Latest Code Status on File) Date Activated Date Inactivated Comments 02/27/2021 1:05 PM 02/27/2021 3:48 PM Question Answer Comments Full Code: Discussed * Full Code Date Activated Date Inactivated Comments 02/27/2021 11:34 AM 02/27/2021 1:05 PM Question Answer Comments Full Code: Discussed Care Teams Press Machine Feeder Relationship Specialty Start Date End Date Kenyatat Muniz M.D. [address] [phone] PCP - General 02/03/17
--- OUTSIDE RECORDS SUMMARY | 2024-02-14 10:12 | XMS_ITS | Encounter Summary ---
Author Organization [facility] Address [address] [place] [address] Care Team Providers Care Sql Database Administrator Name Role Phone Kenyatta Muniz M.D. Primary Care Pro vider Encounter Details Date Type Department Care Team (Late st Contact Info) Description 01/25/2024 Patient Self-Triage [facility] Symptom Hand Driller, Provider Social History Tobacco Use Types Packs/Day Years [...] re latives? Once a week 01/05/2021 Attends Jain Services Not on file 01/05 Active Member [...] PHQ-2 Answer Date Recorded PHQ-2 Score 0 05/26/2023 [facility] Occupational Stress Questionnaire Answer Date Recorded [...] place to sleep or slept in a intermediate (including now)? No 01/05/2021 Nutrition Answer Date [...] Master's degree (e.g., MA, MS, Chris, MEd, BARREL PLANER, CYRUS) 07/24/2019 Sex and Gender Information Value Date Recorded Sex Assigned at Female 10/12/2021 9:16 AM UNDERWEAR CUTTER Gender Identity Female 07/24/2019 5:47 PM UNDERWEAR CUTTER Sexual Orientation Lesbian or Yates 07/24/2019 5: 47 PM UNDERWEAR CUTTER documented as of this encounter Plan of Treatment Upcoming Encounters Date Type Department Care Team (Late st Contact Info) Description 02/17/2024 2:15 PM CDT Comprehensive Visit Department of Obstetrics and Gynecology in [address] [phone] Tracee Thompson M.D. [address] [place] [phone] Discharge Disposition: Home or Self Care 05/29/2024 8:30 AM CDT Appointment Department of Laboratory Medicine in [address] [phone] Kenyatta Muniz M.D. [address] [place] [phone] 05/29/2024 10:45 AM CDT Comprehensive Visit Department of Family Medicine, [facility], in [address] [phone] Kenyatta Muniz M.D. [address] [place] [phone] Discharge Disposition: Home or Self Care documented as of this encounter Visit Diagnoses Not on filedocumented in this encounter Additional Health Concerns Assessment Noted Time PHQ-9 Depression Total Score: 8 02/11/20 17 10:03 AM CDT documented as of this encounter Care Teams Sql Database Administrator Relationship Specialty Start Date End Date Kenyatta Muniz M.D. [address] [place] [phone] PCP - General 02/03/17 documented as of this encounter
--- OUTSIDE RECORDS SUMMARY | 2024-02-14 10:12 | XMS_ITS | Encounter Summary ---
Author Organization [facility] Address [address] [place] [address] Care Team Providers Care Meter/Relay Technician Name Role Phone Kenyatta Muniz M.D. Primary Care Pro vider Reason for Visit * Outpatient (Routine) - Closed Specialty Diagnoses / Procedures Referred By Daniel t Referred To Contact Diagnoses Bleeding Vaginal Procedures US Pelvis Transabdominal US Pelvis Transvaginal and Transabdominal Kenyatta Muniz M.D. [address] [place] [phone] [facility] Region Referral ID Status Reason Start Date Expiration Date Visits Re quested Visits Authorized [id number] Closed 05/26/2023 05/25/2024 1 1 Encounter Details Date Type Department Care Team (Latest Contact Info) Description 02/07/2024 12:51 PM CDT - 02/07/2024 11:59 PM CDT Hospital Encounter Department of Radiology in [address] [phone] Kenyatta Muniz M.D. [address] [place] [phone] Bleeding Vaginal Discharge Disposition: Home or Self Care Social History Tobacco Use Types Packs/Day Years [...] re latives? Once a week 01/05/2021 Attends [employer] Services Not on file 01/05 Active Member [...] Answer Date Recorded PHQ-2 Score 0 02/02/2024 [facility] of Occupat ional Health - Occupational Stress [...] place to sleep or slept in a fpc (including now)? No 01/05/2021 Nutrition Answer Date [...] Master's degree (e.g., MA, MS, Chris, MEd, MARBLE SETTER HELPER, CYRUS) 07/24/2019 Sex and Gender Information Value Date Recorded Sex Assigned at Female 10/12/2021 9:16 AM MACHINE CLOTH MEASURER Gender Identity Female 07/24/2019 5:47 PM MACHINE CLOTH MEASURER Sexual Orientation Lesbian or Yates 07/24/2019 5: 47 PM MACHINE CLOTH MEASURER documented as of this encounter Medications at Time of Discharge Medication Sig Dispensed Refills Start Date End Date acetaminophen (TYLENOL) 500 mg tablet Take 1,000 mg by mouth. amLODIPine (NORVASC) 5 mg tablet TAKE ONE TABLET BY MOUTH ONE TIME DAILY 90 tablet 3 04/18/2023 estradioL (VAGIFEM) 10 mcg vaginal tablet Insert 1 tablet (10 mcg) into vagina at bedtime for two weeks then at bedtime twice a week. 18 tablet 3 01/13/2022 olopatadine (PATADAY) 0.2 % ophthalmic solution Administer 1 drop into both eyes daily. 06/30/2016 sertraline (ZOLOFT) 100 mg tablet take one tablet by mouth one time daily 90 tablet 3 08/30/2023 triamcinolone (KENALOG) 0.1 % cream Apply topically 2 (two) times a day as needed for irritation or rash. Avoid face and groin. 30 g 3 10/19/2023 documented as of this encounter Plan of Treatment Upcoming Encounters Date Type Department Care Team (Late st Contact Info) Description 02/17/2024 2:15 PM CDT Comprehensive Visit Department of Obstetrics and Gynecology in [address] [phone] Tracee Thompson M.D. [address] [place] [phone] Discharge Disposition: Home or Self Care 05/29/2024 8:30 AM CDT Appointment Department of Laboratory Medicine in [address] [phone] Kenyatta Muniz M.D. [address] [place] [phone] 05/29/2024 10:45 AM CDT Comprehensive Visit Department of Family Medicine, [facility], in [address] [phone] Kenyatta Muniz M.D. [address] [phone] Discharge Disposition: Home or Self Care documented as of this encounter Procedures Procedure Name Priority Date/Time Associated Diagnosis Comments US PELVIS TRANSABDOMINAL RAD - Routine (most inpatients and all outpatients) 02/07/2024 1:18 PM CDT Bleeding Vaginal documented in this encounter Results * US Pelvis Transabdominal (02/07/2024 1:18 [...] withtissue sampling. Kenyatta Benavides M.D. IMG US [place] OCEDURES documented in this encounter Visit Diagnoses Diagnosis Bleeding Vaginal documented in this encounter Additional Health Concerns Assessment Noted Time PHQ-9 Depression Total Score: 8 02/11/20 17 10:03 AM CDT documented as of this encounter Care Teams Meter/Relay Technician Relationship Specialty Start Date End Date Kenyatta Muniz M.D. [address] [phone] PCP - General 02/03/17 documented as of this encounter
--- NOTE | 2024-02-14 10:15 | CRLHL7_ITS ---
For Patients: As a result of the Century Cures Act, medical imaging exams and procedure reports are released immediately into your electronic medical record. You may view this report before your referring provider. If you have questions, please contact your health care provider. INDICATION: Soft tissue mass. COMPARISON: None provided. TECHNIQUE: Axial, coronal and sagittal T1 and STIR pre contrast sequences centered on the midfoot. 15 mL gadolinium IV contrast was T1 fat-sat post contrast images in all 3 planes. FINDINGS: In the subcutaneous soft tissues superficial to the medial distal margin of the plantar fascia there is a small well-defined nodule with slightly heterogeneous intermediate T1, high peripheral and patchy nodular low STIR signal which on the postcontrast images shows moderately avid peripheral enhancement with some nodular patchy nonenhancement centrally. The estimated greatest diameter 8 mm and depth 4 mm. It abuts the superficial fascial margin but causes no distortion or thinning. Lesion extends to but not into the overlying dermis. No feeding or draining vessel apparent. No other soft tissue abnormality. Some nonspecific patchy non confluent STIR edema signal in the 2nd metatarsal head. Informed cartilage. Maintained articular cortical contour. And on similar area of marrow edema in the 2nd cuneiform. Minor subchondral edema foci at the mildly degenerated calcaneocuboid joint. IMPRESSION: Small enhancing solid nodule in the subcutaneous soft tissues plantar medial midfoot could soft tissue fibroma, foreign body granulation response or less likely nodule of vascular origin. Dictated by Manas Avila MD @ 02/15/2024 2:27:22 PM (Electronically Signed)
== END 2024-02-14 10:08 | disposition home or self-care (01) ==
PROVIDERS: Visit Provider Podiatrist
DX: R22.41 Localized swelling, mass and lump, right lower limb (principal)
CPT/HCPCS: 73720; A9575